=== PATIENT | male | born 1950 | race Caucasian/White ===

== ENCOUNTER 2021-03-01 | Emergency (ER) | payer MEDICARE ==
[~2021-03-01] MED LIST: ALENDRONATE70 MG PO; AMOXICILLIN500 MG PO; APRISO0.375 GM PO; ASPIRIN LOW DOS81 M2 PO; AUGMENTIN875TAB PO; CALCIUM 600 +600 MG PO; COUMADIN5 MG PO; CRESTOR5 MG PO; LIALDA1.2 GM PO; LOMOTIL2.5 MG PO; MEDDOSEPAK PO; METOPROLOL TART50 MG PO; PREDNISONE10 MG PO; TH IBUPROFEN200 M1 PO; VASOTEC20 MG PO; ZANAFLEX4 MG PO; ZPAK PO
[2021-03-01] MEDS ORDERED: TURMERI1 PO (08:45)
[2021-03-01] MEDS ORDERED: MULTI VIT PO (08:46)
[2021-03-01] MEDS ORDERED: HUMIRA40 MG/0.4 PO (08:46)
[2021-03-01] MEDS ORDERED: FERRAPLUS 90 PO (08:47)
[2021-03-01 08:50] LABS: MEAN CELL VOLUME 87.6 fL CALC (80.0-100.0); MEAN CORPUSCULAR HGB 28.5 pG CALC (26.0-32.0); MEAN CORPUSCULAR HGB CONC 32.5 g/dL CAL (32.0-36.0); NEUT# 25.61 thou/uL (1.82-7.42); RED BLOOD COUNT 6.04 mill/uL (4.70-6.10); RED CELL DISTRI WIDTH 14.7 % (11.5-15.5)
[2021-03-01 08:57] LABS: HEMATOCRIT 52.9 % (39.0-50.0); HEMOGLOBIN 17.2 g/dl (14.0-18.0)
[2021-03-01 09:11] LABS: ALKALINE PHOSPHATASE 73 u/l (38-126); BUN 26 mg/dL (8-23); BUN/CREATININE RATIO 25 (12-20 (CALC)); CARBON DIOXIDE 25 mmol/l (22-30); CHLORIDE 97 mmol/l (95-108); GFR > 60 ML/MIN (>=60 (CALC)); GFR FOR AFR.AMER. > 60 ML/MIN (>=60 (CALC))
[2021-03-01 09:17] LABS: ALBUMIN 4.4 g/dL (3.2-5.0); ANION GAP 16 (6-22 (CALC)); BILIRUBIN, TOTAL 2.4 mg/dL (0.0-1.4); LIPASE 2883 u/l (23-300); POTASSIUM 4.5 mmol/l (3.5-5.1); SGOT/AST 346 u/l (19-48); SODIUM 133 mmol/l (137-146); TOTAL PROTEIN 8.1 g/dL (6.3-8.2)
[2021-03-01 11:01] LABS: URINE BILIRUBIN - DIPSTICK NEGATIVE (NEGATIVE); URINE BLOOD DIPSTICK SMALL (NEGATIVE); URINE GLUCOSE - DIPSTICK 100 mg/dL (NEGATIVE); URINE KETONE NEGATIVE (NEGATIVE); URINE LEUK ESTERASE NEGATIVE (NEGATIVE); URINE PH 5.5 (4.5-8.0); URINE PROTEIN - DIPSTICK 100 mg/dL (NEG-TRACE); URINE SPECIFIC GRAVITY 1.025; URINE UROBILINOGEN - DIPSTICK 0.2 E.U./dL (0.2)
[2021-03-01 11:02] LABS: URINE COLOR DK. YELLOW; URINE NITRITE - DIPSTICK NEGATIVE (Negative)
[2021-03-01 11:03] LABS: URINE EPITHELIAL CELLS FEW EPI/hpf (0-FEW); URINE MUCUS MODERATE hpf (NONE-FEW); URINE RBC 0-2 RBC/hpf (0-5)
[2021-07-06] MEDS ORDERED: TAMSULOSIN HCL0.4 MG PO (10:02)
[2021-07-06] MEDS ORDERED: LOVENOX120 MG/0.8 SC (10:06)
== END 2021-03-01 15:56 | disposition short-term general hospital (02) ==
PROVIDERS: Emergency Medicine
DX: K85.90 Acute pancreatitis without necrosis or infection, unspecified (principal); I10 Essential (primary) hypertension; E78.5 Hyperlipidemia, unspecified
CPT/HCPCS: Q9967

== ENCOUNTER 2021-04-20 19:38 | Emergency (ER) | payer MEDICARE ==
[~2021-04-20] VITALS: Ht 185.4 cm; Wt 115.0 kg
[~2021-04-20 19:38] MED LIST changes: +FERRAPLUS 90 PO; +HUMIRA40 MG/0.4 PO; +MULTI VIT PO; +TURMERI1 PO
[2021-04-20] MEDS ORDERED: GABAPENTIN100 MG PO (20:51)
[2021-04-20] MEDS ORDERED: VALIUM2 MG PO (20:52)
[2021-04-20] MEDS ORDERED: PERCOCET 5/325M1 TAB PO (20:52)
[2021-04-20 21:40] LABS: HEMATOCRIT 44.6 % (39.0-50.0); HEMOGLOBIN 13.8 g/dl (14.0-18.0); IMMATURE GRANULOCYTES 0.5 % (0.0-5.0); MEAN CORPUSCULAR HGB 28.2 pG CALC (26.0-32.0); MEAN CORPUSCULAR HGB CONC 30.9 g/dL CAL (32.0-36.0); NEUT# 10.68 thou/uL (1.82-7.42); RED BLOOD COUNT 4.9 mill/uL (4.70-6.10); RED CELL DISTRI WIDTH 14.7 % (11.5-15.5)
[2021-04-20 21:44] LABS: URINE BILIRUBIN - DIPSTICK NEGATIVE (NEGATIVE); URINE BLOOD DIPSTICK NEGATIVE (NEGATIVE); URINE COLOR YELLOW; URINE GLUCOSE - DIPSTICK NEGATIVE (NEGATIVE); URINE KETONE NEGATIVE (NEGATIVE); URINE LEUK ESTERASE NEGATIVE (NEGATIVE); URINE PROTEIN - DIPSTICK TRACE mg/dL (NEG-TRACE); URINE SPECIFIC GRAVITY 1.025; URINE UROBILINOGEN - DIPSTICK 0.2 E.U./dL (0.2)
[2021-04-20 21:46] LABS: URINE NITRITE - DIPSTICK NEGATIVE (Negative)
[2021-04-20 21:59] LABS: D-DIMER 3.68 mg/L (0.19-0.60)
[2021-04-20 22:14] LABS: ALBUMIN 3.9 g/dL (3.2-5.0); ALKALINE PHOSPHATASE 50 u/l (38-126); AMYLASE 49 u/l (30-110); ANION GAP 13 (6-22 (CALC)); BILIRUBIN, TOTAL 1.1 mg/dL (0.0-1.4); BUN 18 mg/dL (8-23); BUN/CREATININE RATIO 19 (12-20 (CALC)); CARBON DIOXIDE 28 mmol/l (22-30); CHLORIDE 102 mmol/l (95-108); GFR > 60 ML/MIN (>=60 (CALC)); GFR FOR AFR.AMER. > 60 ML/MIN (>=60 (CALC)); LIPASE 20 u/l (23-300); POTASSIUM 4.1 mmol/l (3.5-5.1); SGOT/AST 42 u/l (19-48); SODIUM 138 mmol/l (137-146); TOTAL PROTEIN 7.6 g/dL (6.3-8.2)
[2021-04-20 22:24] LABS: INTERNATIONAL NORMALIZED RATIO 1.1 RATIO (0.7-1.3); PROTHROMBIN TIME 11.5 SECONDS (9.0-12.5)
[2021-04-21 01:07] VITALS: BP 166/77
[2021-07-06] MEDS ORDERED: TAMSULOSIN HCL0.4 MG PO (10:02)
[2021-07-06] MEDS ORDERED: LOVENOX120 MG/0.8 SC (10:06)
== END 2021-04-21 01:08 | disposition short-term general hospital (02) ==
LOC: ED 19:38
PROC: 0T9B70Z Drainage of Bladder with Drainage Device, Via Natural or Artificial Opening (ICD-10-PCS; principal; 2021-04-20)
DX: R50.82 Postprocedural fever (principal); J18.9 Pneumonia, unspecified organism; R33.9 Retention of urine, unspecified; I10 Essential (primary) hypertension; E78.5 Hyperlipidemia, unspecified; Z90.49 Acquired absence of other specified parts of digestive tract; R06.02 Shortness of breath
CPT/HCPCS: J0131; Q9967

== ENCOUNTER 2021-05-14 12:01 | Emergency (ER) | payer MEDICARE ==
[~2021-05-14] VITALS: Ht 185.4 cm; Wt 113.6 kg
[~2021-05-14 12:01] MED LIST changes: +GABAPENTIN100 MG PO; +PERCOCET 5/325M1 TAB PO; +VALIUM2 MG PO
[2021-05-14 15:46] VITALS: BP 121/70
[2021-07-06] MEDS ORDERED: TAMSULOSIN HCL0.4 MG PO (10:02)
[2021-07-06] MEDS ORDERED: LOVENOX120 MG/0.8 SC (10:06)
== END 2021-05-14 15:50 | disposition home or self-care (01) ==
LOC: ED 12:01
DX: M47.27 Other spondylosis with radiculopathy, lumbosacral region (principal); M48.07 Spinal stenosis, lumbosacral region; I10 Essential (primary) hypertension; E78.5 Hyperlipidemia, unspecified

== ENCOUNTER 2021-07-08 07:28 | Day surgery (SDC) | payer MEDICARE ==
[~2021-07-08 07:28] MED LIST changes: +LOVENOX120 MG/0.8 SC; +TAMSULOSIN HCL0.4 MG PO
[2021-07-08 12:35] VITALS: BP 172/72
== END 2021-07-08 14:30 | disposition home health service (06) ==
LOC: ORM 07:28
PROVIDERS: ATTEND Urology
PROC: 0VB08ZZ Excision of Prostate, Via Natural or Artificial Opening Endoscopic (ICD-10-PCS; principal; 2021-07-08)
DX: N40.1 Benign prostatic hyperplasia with lower urinary tract symptoms (principal); R33.8 Other retention of urine; N13.8 Other obstructive and reflux uropathy; N41.1 Chronic prostatitis; D68.51 Activated protein C resistance; E78.2 Mixed hyperlipidemia; I10 Essential (primary) hypertension; K74.60 Unspecified cirrhosis of liver; M47.26 Other spondylosis with radiculopathy, lumbar region; Z87.891 Personal history of nicotine dependence; Z80.42 Family history of malignant neoplasm of prostate; Z79.01 Long term (current) use of anticoagulants; Z87.440 Personal history of urinary (tract) infections

== ENCOUNTER 2022-08-17 17:33 | Emergency (ER) | payer MEDICARE ==
[~2022-08-17] VITALS: Ht 185.4 cm; Wt 130.0 kg
[2022-08-17] MEDS ORDERED: METOPROL TAR25 MG PO (17:57)
[2022-08-17] MEDS ORDERED: LORTAB 5/3255 MG PO (19:54)
[2022-08-17] MEDS ORDERED: MOTRIN800 MG PO (19:54)
[2022-08-17 20:07] VITALS: BP 161/100
== END 2022-08-17 20:17 | disposition home or self-care (01) ==
LOC: ED 17:33
DX: S42.252A Displaced fracture of greater tuberosity of left humerus, initial encounter for closed fracture (principal); S20.212A Contusion of left front wall of thorax, initial encounter; I10 Essential (primary) hypertension; E78.5 Hyperlipidemia, unspecified; W01.0XXA Fall on same level from slipping, tripping and stumbling without subsequent striking against object, initial encounter; Y93.89 Activity, other specified; Y92.512 Supermarket, store or market as the place of occurrence of the external cause

== ENCOUNTER 2023-07-24 23:45 | Inpatient (IN) | payer MEDICARE ==
[~2023-07-24] VITALS: Ht 185.4 cm; Wt 113.0 kg
[~2023-07-24 23:45] MED LIST changes: +LORTAB 5/3255 MG PO; +METOPROL TAR25 MG PO; +MOTRIN800 MG PO
[2023-07-24 23:54] VITALS: BP 201/94
[2023-07-25] VITALS (56 sets, daily range): BP systolic 75–198; BP diastolic 23–129
--- NOTE | 2023-07-25 00:09 | NUR ---
PT AMBULATED TO ROOM 14 FOR TRIAGE AND CARE
[2023-07-25 00:47] LABS: BASO% 0.5 % (0-3); EOS% 3.8 % (0-8); HEMATOCRIT 42.3 % (39.0-50.0); HEMOGLOBIN 13.9 g/dl (14.0-18.0); IMMATURE GRANULOCYTES 0.6 % (0.0-5.0); LYMPH% 32.2 % (15-41); MEAN CELL VOLUME 88.9 fL CALC (80.0-100.0); MEAN CORPUSCULAR HGB 29.2 pG CALC (26.0-32.0); MEAN CORPUSCULAR HGB CONC 32.9 g/dL CAL (32.0-36.0); MONO% 13.7 % (2-13); NEUT# 4.8 thou/uL (1.82-7.42); NEUT% 49.2 % (42-76); RED BLOOD COUNT 4.76 mill/uL (4.70-6.10)
[2023-07-25 00:59] LABS: ALKALINE PHOSPHATASE 44 u/l (38-126); BILIRUBIN, TOTAL 0.7 mg/dL (0.2-1.3); BUN 25 mg/dL (8-23); BUN/CREATININE RATIO 18 (12-20 (CALC)); CARBON DIOXIDE 28 mmol/l (22-30); CHLORIDE 107 mmol/l (95-108); CREATININE 1.4 mg/dL (0.7-1.3); GFR FOR AFR.AMER. 60 ML/MIN (>=60 (CALC)); GFR OTHER RACES 50 ML/MIN (>=60 (CALC)); TOTAL PROTEIN 7.8 g/dL (6.3-8.2)
[2023-07-25 01:03] LABS: ALBUMIN 4.1 g/dL (3.2-5.0); ANION GAP 11 (6-22 (CALC)); SGOT/AST 57 u/l (19-48); SODIUM 142 mmol/l (137-146)
[2023-07-25 01:09] LABS: D-DIMER 0.21 mg/L (0.19-0.60)
[2023-07-25 01:12] LABS: ACT PARTIAL THROMBO TIME 39.7 SECONDS (20.0-32.5)
[2023-07-25 01:16] LABS: INTERNATIONAL NORMALIZED RATIO 4.3 RATIO (0.7-1.3); PROTHROMBIN TIME 38.9 SECONDS (9.0-12.5)
[2023-07-25] MEDS ORDERED: GLIMEPIRIDE2 MG PO (02:12)
[2023-07-25] MEDS ORDERED: FENOFIBRATE160 MG PO (02:13)
--- NOTE | 2023-07-25 03:15 | NUR ---
PT WILL BE ADMITTED. IS AT BEDSIDE. PT IS SLEEPING AT THIS TIME AND CALL NORMAN WITHIN REACH
[2023-07-25 04:44] LABS: URINE BILIRUBIN - DIPSTICK Negative (NEGATIVE); URINE BLOOD DIPSTICK Negative (NEGATIVE); URINE GLUCOSE - DIPSTICK Negative (NEGATIVE); URINE KETONE Negative (NEGATIVE); URINE LEUK ESTERASE Negative (NEGATIVE); URINE NITRITE - DIPSTICK Negative (Negative); URINE PROTEIN - DIPSTICK 100 mg/dL (NEG-TRACE); URINE SPECIFIC GRAVITY 1.025; URINE UROBILINOGEN - DIPSTICK 0.2 E.U./dL (0.2)
[2023-07-25 04:46] LABS: URINE COLOR Yellow
[2023-07-25 04:54] LABS: URINE SQUAMOUS EPITHELIAL CELL FEW EPI/hpf (0-FEW); URINE WBC 0-2 WBC/hpf (0-5)
--- NOTE | 2023-07-25 05:08 | NUR ---
PT SLEEPING WITH AT BEDSIDE. CALL NORMAN WITHIN REACH
--- NOTE | 2023-07-25 06:50 | NUR ---
MO GAVE BEDSIDE REPORT TO JOHN MED SURG NURSE
--- NOTE | 2023-07-25 07:05 | NUR ---
REPORT RECEIVED FROM ROMINA,RN
--- NOTE | 2023-07-25 08:20 | NUR ---
PT RESTING IN SEMI FOWLERS POSITION,A&O X3;VS OBTAINED AND ASSESSMENT COMPLETED;PT DENIES ANY CURRENT PAIN OR NEEDS,PAIN SCALE AND REPORTING EDUCATED;RESPIRATIONS EVEN AND UNLABORED ON RA,CLEAR LUNG SOUNDS;ABDOMEN SOFT ON PALPATION AND ACTIVE IN ALL 4 QUADRANTS;STRONG PEDAL PULSES;SKIN INTACT;HEART MONITOR IN PLACE;#20G TO RFA FLUSHED AND PATENT,SITE APPEARS HEALTHY;ACCUCHECK 114;MEAL TRAY PROVIDED;ALLERGY BAND APPLIED TO RIGHT ARM;PT DENIES ANY ADDITIONAL NEEDS AND IS ENCOURAGED TO CALL FOR ASSISTANCE IF NEEDED;FALL PRECAUITONS IN PLACE WITH CALL LIGHT IN REACH;FREQUENT ROUNDS MADE.
--- NOTE | 2023-07-25 10:38 | NUR ---
PT SPOUSE AT BEDSIDE.
--- NOTE | 2023-07-25 11:13 | NUR ---
SPOUSE PROVIDED LIVING WILL FOR PT. COPY OBTAINED AND PLACED IN CHART.
--- NOTE | 2023-07-25 11:30 | NUR ---
PT RESTING IN SEMI FOWLERS POSITION WITH SPOUSE AT BEDSIDE;RESPIRATIONS EVEN AND UNLABORED ON RA;PT DENIES ANY CURRENT PAIN OR NEEDS;HEART MONITOR IN PLACE;IV SITE TO RFA PATENT;ACCUCHECK 126;PT DENIES ANY ADDITIONAL NEEDS AND IS ENCOURAGED TO CALL FOR ASSISTANCE IF NEEDED;FALL PRECAUTIONS REMAIN IN PLACE WITH CALL LIGHT IN REACH;FREQUENT ROUNDS MADE.
--- NOTE | 2023-07-25 14:00 | NUR ---
PT BP 172/74 HR 65, PT ASYMPTOMATIC. NO ORDERS CURRENTLY FOR BP. HERB OSMAN NOTIFIED.AWAITING NEW ORDERS.
--- NOTE | 2023-07-25 14:58 | NUR ---
APRESOLINE ADMIN FOR JOHN. BP 194/96 HR 65 PRIOR TO ADMIN.
--- NOTE | 2023-07-25 15:00 | NUR ---
PT MEDICATED WITH PRN APRESOLINE 10MG SLOW IV PUSH BY GUTIERREZ GIBBONS
--- NOTE | 2023-07-25 15:10 | NUR ---
MD AT BEDSIDE DISCUSSING POC.
--- NOTE | 2023-07-25 15:20 | NUR ---
BP RE-CHECK 160/76 HR 65.
--- NOTE | 2023-07-25 15:25 | NUR ---
PT TRANSFERRED TO MED SURG ROOM 268 IN STABLE CONDITION VIA HOSPITAL BED ACCOMPANIED BY THIS WRITTER AND ALISSA DONNELLY;PT ORIENTED TO ROOM AND CALL LIGHT SYSTEM;VS OBTAINED AND WNL;RESPIRATIONS EVEN AND UNLABORED ON RA;PT DENIES ANY CURRENT PAIN OR DISCOMFORTS;TELE MONITORING IN PLACE;IV SITE TO RFA PATENT;WATER AND URINAL PROVIDED;PT ENCOURAGED TO CALL FOR ASSISTANCE IF NEEDED;FALL PRECAUTIONS IN PLACE WITH CALL LIGHT IN REACH;FREQUENT ROUNDS MADE.
--- NOTE | 2023-07-25 16:39 | NUR ---
PT INSTRUCTED TO HAVE FAMILY BRING IN FENOFIBRATE FROM HOME.
[2023-07-26] VITALS (27 sets, daily range): BP systolic 83–199; BP diastolic 57–79
--- NOTE | 2023-07-26 00:20 | NUR ---
PT ALERT AND ORIENTED X 3. NO C/O OFFERED. VSS. SLEEPING WELL. SAFETY PRECAUTIONS MAINTAINED CALL LIGHT IN REACH
[2023-07-26 05:57] LABS: HEMATOCRIT 44.5 % (39.0-50.0); HEMOGLOBIN 14.7 g/dl (14.0-18.0); MEAN CELL VOLUME 89.5 fL CALC (80.0-100.0); MEAN CORPUSCULAR HGB 29.6 pG CALC (26.0-32.0); RED BLOOD COUNT 4.97 mill/uL (4.70-6.10); RED CELL DISTRI WIDTH 14.4 % (11.5-15.5)
[2023-07-26 06:04] LABS: ALBUMIN 3.6 g/dL (3.2-5.0); ALKALINE PHOSPHATASE 37 u/l (38-126); BUN 21 mg/dL (8-23); BUN/CREATININE RATIO 17 (12-20 (CALC)); CHLORIDE 110 mmol/l (95-108); CREATININE 1.2 mg/dL (0.7-1.3); GFR FOR AFR.AMER. > 60 ML/MIN (>=60 (CALC)); GFR OTHER RACES 60 ML/MIN (>=60 (CALC)); POTASSIUM 4.4 mmol/l (3.5-5.1); SGOT/AST 49 u/l (19-48); SODIUM 139 mmol/l (137-146); TOTAL PROTEIN 6.9 g/dL (6.3-8.2)
[2023-07-26 06:05] LABS: ANION GAP 12 (6-22 (CALC)); CARBON DIOXIDE 21 mmol/l (22-30)
--- NOTE | 2023-07-26 07:00 | NUR ---
RECEIVE REPORT FROM MAREK WHITLEY.
[2023-07-26 07:28] LABS: PROTHROMBIN TIME 27.1 SECONDS (9.0-12.5)
--- NOTE | 2023-07-26 08:00 | NUR ---
PATIENT ALERT AND ORIENTED X3. REST IN BED WITH EYES CLOSED. TELE MONITOR ON. PATIENT DOES NOT REFER TO PAIN OR DISCOMFORT AT THE MOMENT. PT IS EDUCATED ABOUD MEDICATIONS AND NURSING PLAN FOR TODAY. PT REFER UNDERSTAND. SAFETY AND FALL PRECAUTIONS IN PLACE. CALL LIGHT WITHIN IN REACH.
--- NOTE | 2023-07-26 12:17 | NUR ---
PATIENT STABLE AT THE TIME OF THIS NOTE. IT IS OBSERVED RESTING IN THE BED. SAFETY AND FALL PRECAUTIONS IN PLACE. CALL LIGHT WITHIN IN REACH.
--- NOTE | 2023-07-26 16:12 | NUR ---
PATIENT STABLE AT THE TIME OF THIS NOTE. IT IS OBSERVED RESTING IN THE BED. SAFETY AND FALL PRECAUTIONS IN PLACE. CALL LIGHT WITHIN IN REACH.
--- NOTE | 2023-07-26 16:32 | NUR ---
nurse aware of patient glucose level is 78. nurse given orange juice.
--- NOTE | 2023-07-26 18:39 | NUR ---
PATIENT IS TRANSFERRED TO ICU ACCORDING TO MEDICAL ORDER. STABLE AT THE TIME OF THE TRANSFER. REPORT IS GIVED TO SURESH WHITLEY.
--- NOTE | 2023-07-26 18:58 | NUR ---
PT ARRIVED TO ICU TRANSFER FROM MED-SURG UNIT. PT IS A/O. ON RA. NSR ON MONITOR. PT DENIES ANY PAIN. CALL LIGHT IN REACH. VSS.
--- NOTE | 2023-07-26 19:00 | NUR ---
REPORT RECEIVED FROM OFF GOING NURSE.
--- NOTE | 2023-07-26 20:00 | NUR ---
PATIENT NOTED SITTING UP IN BED WITH NO ACUTE DISTRESS NOTED. VSS. HR NOTED IN THE 50S. HE IS A/O X3. LUNGS CLEAR. BOWEL SOUNDS ACTIVE. NO S/S OF BLEEDING NOTED. HE DENIES ANY S/S OF BLEEDING. SKIN INTACT. STRONG RADIAL AND PEDAL PULSES NOTED. NO EDEMA NOTED. HE DENIES ANY PAIN OR DISCOMFORT. BED LOCKED, IN LOW POSITION, CALL LIGHT WITHIN REACH.
--- NOTE | 2023-07-26 22:00 | NUR ---
PATIENT SLEEPING, NO ACUTE DISTRESS NOTED. NO S/S OF BLEEDING NOTED. CALL LIGHT WITHIN REACH.
--- NOTE | 2023-07-26 23:30 | NUR ---
PATIENT MEDICATED X1 WITH HYDRALAZINE FOR ELEVATED BP.
[2023-07-27] VITALS (46 sets, daily range): BP systolic 88–178; BP diastolic 41–99
--- NOTE | 2023-07-27 | NUR ---
PATIENT SLEEPING. NO ACUTE DISTRESS NOTED. NO S/S OF BLEEDING NOTED. BED LOCKED IN LOW POSITION, CALL LIGHT WITHIN REACH. HE BP HAS IMPROVED.
--- NOTE | 2023-07-27 02:00 | NUR ---
PATIENT SLEEPING. NO S/S OF BLEEDING NOTED. CALL LIGHT WITHIN REACH. WILL CONTINUE TO MONITOR.
--- NOTE | 2023-07-27 04:00 | NUR ---
PATIENT SLEEPING. NO ACUTE DISTRESS NOTED. NO S/S OF BLEEDING NOTED. WILL CONTINUE TO MONITOR.
--- NOTE | 2023-07-27 07:20 | NUR ---
PERFROMED BEDSIDE REPORT WITH NIGHTSHIFT NURSE. PT NOTED SITTING UP HIGH FOWLERS IN BED AT THIS TIME AWAITING BREAKFAST. A/OX3, DENIES ANY PAIN. MOOD IS PLEASENT. EDUCATED ON PLAN OF CARE FOR TODAY. VSS. CALL LIGHT WITHIN REACH AND SAFETY PRECAUTIONS IN PLACE.
[2023-07-27 09:13] LABS: BASO% 0.8 % (0-3); EOS% 4.5 % (0-8); HEMATOCRIT 46.5 % (39.0-50.0); HEMOGLOBIN 15.5 g/dl (14.0-18.0); IMMATURE GRANULOCYTES 0.7 % (0.0-5.0); LYMPH% 27.3 % (15-41); MEAN CELL VOLUME 89.1 fL CALC (80.0-100.0); MEAN CORPUSCULAR HGB 29.7 pG CALC (26.0-32.0); MEAN CORPUSCULAR HGB CONC 33.3 g/dL CAL (32.0-36.0); MONO% 11.1 % (2-13); NEUT# 4.25 thou/uL (1.82-7.42); NEUT% 55.6 % (42-76); RED BLOOD COUNT 5.22 mill/uL (4.70-6.10); RED CELL DISTRI WIDTH 14.4 % (11.5-15.5)
[2023-07-27 09:14] LABS: ANION GAP 14 (6-22 (CALC)); BUN 19 mg/dL (8-23); BUN/CREATININE RATIO 17 (12-20 (CALC)); CARBON DIOXIDE 23 mmol/l (22-30); CHLORIDE 107 mmol/l (95-108); CREATININE 1.1 mg/dL (0.7-1.3); GFR FOR AFR.AMER. > 60 ML/MIN (>=60 (CALC)); GFR OTHER RACES > 60 ML/MIN (>=60 (CALC)); POTASSIUM 4.1 mmol/l (3.5-5.1); SODIUM 140 mmol/l (137-146)
--- NOTE | 2023-07-27 09:47 | NUR ---
PT ATE BREAKFAST AND TOLERATED WELL. PT IS SITTING UP ON SIDE OF BED, VSS. NO C/O AT THIS TIME. CALL LIGHT WITHIN REACH AND SAFETY PRECAUTIONS IN PLACE.
[2023-07-27 11:00] LABS: INTERNATIONAL NORMALIZED RATIO 1.8 RATIO (0.7-1.3); PROTHROMBIN TIME 16.6 SECONDS (9.0-12.5)
--- NOTE | 2023-07-27 12:11 | NUR ---
PT WAS ABLE TO AMBULATE WITH STEADY GAIT UP AND DOWN HALLWAY, WITH STAND BY ASSIST. ENCOURAGED PT TO SIT UP IN CHAIR OR ON SIDE OF BED TO EAT LUNCH. PT SITTING HIGH FOWLERS IN BED EATING LUNCH. AT BEDSIDE. VSS. CALL LIGHT WITHIN REACH AND SAFTEY PRECAUTIONS IN PLACE.
--- NOTE | 2023-07-27 14:00 | NUR ---
CARDIOLOGY CONSULT ORDERED PER MD. PT IS SITTING UP IN BED WITH AT BEDSIDE. NO S/S OF DISTRESS. CALL LIGHT WITHIN REACH AND SAFETY PRECAUTIONS IN PLACE. VSS.
[2023-07-27 16:01] LABS: MAGNESIUM 1.9 mg/dL (1.6-2.3)
--- NOTE | 2023-07-27 16:15 | NUR ---
PT WAS LAYING ON LEFT SIDE RESTING WITH BLOOD PRESSURE CUFF NOT ACCURATELY PLACE SO BP WAS READING LOW. PLACED BP CUFF ON PROPERLY AND VSS WNL. PT DENIES ANY PAIN AND STATES "FEELING BETTER." CALL LIGHT WITHIN REACH AND SAFETY PRECAUTIONS IN PLACE.
--- NOTE | 2023-07-27 17:50 | NUR ---
[facility] CARDIOLOGY CONSULT COMPLETED. PT LAYING SEMI FOWLERS IN BED, RESTING COMFORTABLY. VSS. CALL LIGHT WITHIN REACH AND SAFETY PRECAUTIONS IN PLACE.
--- NOTE | 2023-07-27 19:00 | NUR ---
hand off report received
--- NOTE | 2023-07-27 20:00 | NUR ---
PATIENT AWAKE AND ALERT, RESTING QUIETLY WATCHING TV, RESPIRATIONS EVEN AND UNLABORED ON ROOM AIR, NO C/O PAIN OR DISCOMFORT, NO S/S OF DISTRESS NOTED.
--- NOTE | 2023-07-27 22:00 | NUR ---
PATIENT RESTING WITH EYES CLOSED, RESPIRATIONS EVEN AND UNLABORED ON ROOM AIR, NO C/OPAIN OR DISCOMFORT, NO S/S OF DISTRESS NOTED.
--- NOTE | 2023-07-27 23:59 | NUR ---
PATIENT RESTING QUIETLY WITH EYES CLOSED, LIGHTS OUT FOR COMFORT, RESPIRATIONS EVEN AND UNLABORED ON ROOM AIR.
[2023-07-28] VITALS (29 sets, daily range): BP systolic 66–181; BP diastolic 22–105
--- NOTE | 2023-07-28 02:00 | NUR ---
resting with eyes closed, all vitals wnl
--- NOTE | 2023-07-28 04:00 | NUR ---
PATIENT RESTING QUIETLY WITH EYES CLOSED, RESPIRATIONS EVEN AND UNLABORED ON ROOM AIR, NO C/O PAIN OR DISCOMFORT. NO S/S OF DISTRESS NOTED.
--- NOTE | 2023-07-28 08:00 | NUR ---
Patient sitting up in bed. NAD noted. Lungs clear to ascultation. Breathing even and unlabored. Will continue to monitor.
[2023-07-28 08:47] LABS: INTERNATIONAL NORMALIZED RATIO 1.6 RATIO (0.7-1.3); PROTHROMBIN TIME 14.8 SECONDS (9.0-12.5)
--- NOTE | 2023-07-28 09:57 | NUR ---
Patient lying in bed. Dr. Mullen roundavel at bedside. Patient to be discharged, verbalized understanding. Patient reminded to keep a BP log for visit with primary car . Patient is paced on the monitor. NAD noted. Bed in low position. Will continue to monitor.
--- NOTE | 2023-07-28 12:31 | NUR ---
Patient lying in bed. Denies pain at this time. Paced on the monitor. NAD noted. Will continue to monitor.
--- NOTE | 2023-07-28 14:27 | NUR ---
Patient lying in bed. Paced on the monitor. NAD noted. Breathing even and unlabored. Bed in low position. Will continue to monitor.
--- NOTE | 2023-07-28 16:09 | NUR ---
Patient lying in bed. SR on the monitor. NAD noted. Will continue to monitor.
--- NOTE | 2023-07-28 17:47 | NUR ---
Patient lying in bed. Denies pain. SR on the monitor. NAD noted. Bed in low position. Call light next to L hand. Will continue to monitor.
--- NOTE | 2023-07-28 22:00 | NUR ---
PT IS A VERY PLEASENT 72 YO. A&OX3, MOVES ALL EXTREMITIES WNL, SR WITH RBBB ON TELE, RA WITH CLEAR LUNGS ON AUSCULTATION, SKIN IS CDI, URINAL AT BEDSIDE WITH NAD AND VSS. BED IN THE LOWEST POSITON WITH BEDSIDE TABLE AND CALL LIGHT WITHIN REACH. WILL CONTINUE POC.
--- NOTE | 2023-07-28 23:28 | NUR ---
PT APPEARS COMFORTABLE LYING IN BED WATCHING TV WITH NAD AND VSS. BED IN THE LOWEST POSITION WITH BEDSIDE TABLE AND CALL LIGHT WITH IN REACH. WILL CONTINUE WITH POC.
[2023-07-29] VITALS (29 sets, daily range): BP systolic 100–156; BP diastolic 17–88
--- NOTE | 2023-07-29 04:22 | NUR ---
PT APPEARS COMFORTABLE IN BED WITH EYES CLOSED WITH NAD AND VSS. BED IN THE LOWEST POSITION WITH BEDSIDE TABLE CALL LIGHT WTHIN REACH. WILL CONTINUE WITH POC.
--- NOTE | 2023-07-29 08:06 | NUR ---
Patient sitting on side of bed eating breakfast. C/o lower back discomfort, but denies discomfort relief. AO x 3. Lungs clear to ascultation. Breathing even and unlabored. SR on the monitor. VSS. NAD noted. Bed in low position. Will continue to monitor.
[2023-07-29 08:43] LABS: INTERNATIONAL NORMALIZED RATIO 1.8 RATIO (0.7-1.3); PROTHROMBIN TIME 16.4 SECONDS (9.0-12.5)
[2023-07-29 08:46] LABS: ALBUMIN 4.1 g/dL (3.2-5.0); ALKALINE PHOSPHATASE 45 u/l (38-126); ANION GAP 12 (6-22 (CALC)); BILIRUBIN, TOTAL 0.9 mg/dL (0.2-1.3); BUN 22 mg/dL (8-23); BUN/CREATININE RATIO 18 (12-20 (CALC)); CARBON DIOXIDE 26 mmol/l (22-30); CHLORIDE 105 mmol/l (95-108); CREATININE 1.2 mg/dL (0.7-1.3); GFR FOR AFR.AMER. > 60 ML/MIN (>=60 (CALC)); GFR OTHER RACES 60 ML/MIN (>=60 (CALC)); POTASSIUM 4.3 mmol/l (3.5-5.1); SGOT/AST 53 u/l (19-48); SODIUM 140 mmol/l (137-146); TOTAL PROTEIN 7.9 g/dL (6.3-8.2)
--- NOTE | 2023-07-29 09:58 | NUR ---
Dr. Mullen rounding at bedside. Patient awaiting cardio consult. Denies pain at this time. Hold BP meds this AM. VSS. NAD noted. Bed in low position. Will continue to monitor.
[2023-07-29] MEDS ORDERED: JANTOVEN5 MG PO ×2 (10:55)
--- NOTE | 2023-07-29 11:55 | NUR ---
Patient sitting on the side of bed eating lunch. Denies pain at this time. NAD ST on the monitor. Breathing even and unlabored. NAD noted. Will continue to monitor.
--- NOTE | 2023-07-29 14:00 | NUR ---
Patient sitting up in bed. at bedside. Per senior corporate strategy manager, d/c amlodipine. Per Dr. Mullen, patient is to restart losartan and take Toprol XL 25 mg. Patient verbalized understanding. Patient to be monitored overnight and discharged pending progress. SR on the monitor. NAD noted. Bed in low position. Call light next to L hand. Will continue to monitor.
--- NOTE | 2023-07-29 16:12 | NUR ---
Patient lying in bed. NAD noted. SR on the monitor. Will continue to monitor.
--- NOTE | 2023-07-29 19:03 | NUR ---
THIS METALSMITH AND PATIENT WENT ON A 5 MINUTE WALK. PATIENT HR DID NOT EXCEED 114. PATIENT DENIED DIZZINESS/NAUSEA. BREATHING EVEN AND UNLABORED DURING WALK.
--- NOTE | 2023-07-29 20:48 | NUR ---
PT IS A VERY PLEASENT 72 YO MALE WHO IS A&OX3, AMBULATORY WITH WALKER, SR WITH RBBB ON TELE, RA WITH LUNGS CLEAR UPON AUSCULTATION WITH NAD AND VSS AT THIS TIME. BED IN THE LOWEST POSITION WITH BEDSIDE TABLE, CALL LIGHT AND URINAL WITHIN REACH. WILL CONTINUE POC.
[2023-07-30] VITALS (38 sets, daily range): BP systolic 84–176; BP diastolic 33–92
--- NOTE | 2023-07-30 00:53 | NUR ---
PT RESTING IN BED WITH EYES CLOSED WITH NAD AND VSS. BED IN THE LOWEST POSITION WITH BEDSIDE TABLE, CALL LIGHT AND URINAL AT BEDSIDE. WILL CONTINUE POC.
--- NOTE | 2023-07-30 07:55 | NUR ---
PATIENT SITTING UP ON THE SIDE OF THE BED FOR BREAKFAST. A/O X 3. C/O THROBBING GARY PAIN OF A 2. MEDICATED ACCORDING TO EMAR. BREATHING EVEN AND UNLABORED. SR ON THE MONITOR. BP ELEVATED AT 174/87. GLU 85. AFEBRILE AT 97.6. LUNGS CLEAR TO ASCULTATION. NAD NOTED. BED IN LOW POSITION. CALL LIGHT NEXT TO R LEG. WILL CONTINUE TO MONITOR.
--- NOTE | 2023-07-30 10:00 | NUR ---
Patient sitting up in bed. Denies pain at this time. NAD noted. SR on the monitor. Will continue to monitor.
[2023-07-30 11:34] LABS: BASO% 0.7 % (0-3); EOS% 3.9 % (0-8); HEMATOCRIT 44.5 % (39.0-50.0); HEMOGLOBIN 14.3 g/dl (14.0-18.0); IMMATURE GRANULOCYTES 0.4 % (0.0-5.0); LYMPH% 28.3 % (15-41); MEAN CELL VOLUME 91.4 fL CALC (80.0-100.0); MEAN CORPUSCULAR HGB 29.4 pG CALC (26.0-32.0); MEAN CORPUSCULAR HGB CONC 32.1 g/dL CAL (32.0-36.0); MONO% 10.6 % (2-13); NEUT# 4.29 thou/uL (1.82-7.42); NEUT% 56.1 % (42-76); RED BLOOD COUNT 4.87 mill/uL (4.70-6.10); RED CELL DISTRI WIDTH 14.4 % (11.5-15.5)
[2023-07-30 11:44] LABS: ALBUMIN 3.5 g/dL (3.2-5.0); ALKALINE PHOSPHATASE 39 u/l (38-126); ANION GAP 9 (6-22 (CALC)); BILIRUBIN, TOTAL 0.7 mg/dL (0.2-1.3); BUN 21 mg/dL (8-23); BUN/CREATININE RATIO 19 (12-20 (CALC)); CARBON DIOXIDE 29 mmol/l (22-30); CHLORIDE 104 mmol/l (95-108); CREATININE 1.1 mg/dL (0.7-1.3); GFR FOR AFR.AMER. > 60 ML/MIN (>=60 (CALC)); GFR OTHER RACES > 60 ML/MIN (>=60 (CALC)); POTASSIUM 4.4 mmol/l (3.5-5.1); SGOT/AST 58 u/l (19-48); SODIUM 137 mmol/l (137-146); TOTAL PROTEIN 6.7 g/dL (6.3-8.2)
--- NOTE | 2023-07-30 11:49 | NUR ---
Patient sitting up on side of bed eating lunch. at bedside. Dr. Ramos cleared patient for discharge. This teletypewriter installer and patient went on a walk to MS unit. Patient denied feeling dizzy on the walk and HR remained WNL. Awaiting discharge orders. SR on the monitor. NAD noted. Will continue to monitor.
[2023-07-30 11:54] LABS: INTERNATIONAL NORMALIZED RATIO 2.4 RATIO (0.7-1.3); PROTHROMBIN TIME 22.4 SECONDS (9.0-12.5)
[2023-07-30] MEDS ORDERED: TOPROL XL25 M1 PO (13:30)
[2023-07-30] MEDS ORDERED: LOSARTAN POTASS50 MG PO (13:31)
--- NOTE | 2023-07-30 15:10 | NUR ---
Discharge instructions given. Patient verbalizes understanding of same. Discharged in stable condition via Wheelchair to Home with staff. All belongings sent with pt.
== END 2023-07-30 15:10 | disposition home health service (06) | DRG 305 ==
LOC: ED 23:45 → ED-I 07-25 02:28 → MS2 07-25 15:28 → ICU 07-26 19:31
PROVIDERS: Emergency Medicine; Student in an Organized Health Care Education/Training Program; ADMIT Internal Medicine; ATTEND Internal Medicine
DX: I16.0 Hypertensive urgency (principal); D68.51 Activated protein C resistance; K51.90 Ulcerative colitis, unspecified, without complications; R00.1 Bradycardia, unspecified; I10 Essential (primary) hypertension; E11.9 Type 2 diabetes mellitus without complications; E78.5 Hyperlipidemia, unspecified; N40.0 Benign prostatic hyperplasia without lower urinary tract symptoms; R79.1 Abnormal coagulation profile; T45.515A Adverse effect of anticoagulants, initial encounter; H40.9 Unspecified glaucoma; Z79.01 Long term (current) use of anticoagulants; Z79.84 Long term (current) use of oral hypoglycemic drugs; Z88.1 Allergy status to other antibiotic agents